=== PATIENT | female | born 2000 | race Caucasian/White ===

== ENCOUNTER 2022-06-15 22:02 | Emergency (ER) | payer MEDICAID ==
[~2022-06-15] VITALS: Ht 160 cm; Wt 91.0 kg
[2022-06-15 22:20] VITALS: BP 109/64
== END 2022-06-16 03:42 | disposition left against medical advice (07) ==
LOC: ER 22:02
DX: R21 Rash and other nonspecific skin eruption (principal); Z53.21 Procedure and treatment not carried out due to patient leaving prior to being seen by health care provider